=== PATIENT | male | born 1960 | race Two or more races ===

== ENCOUNTER 2016-10-24 07:03 | Day surgery (SDC) | payer OTHER ==
[2016-10-23 12:09] LABS: BLOOD UREA NITROGEN 12 mg/dL (7-18)
[~2016-10-24] VITALS: Ht 167.6 cm; Wt 88.0 kg
[~2016-10-24 07:03] MED LIST: ATOR10TA PO
[2016-10-24] MEDS ORDERED: LACTATED RINGERS 1,000 ML IV SCH (07:44)
[2016-10-24 07:46] VITALS: BP 130/85
[2016-10-24] MEDS ORDERED: MIDAZOLAM 1 MG/ML, 2ML ONE (08:13)
[2016-10-24] MEDS ORDERED: FENTANYL PF 250 MCG/5ML ONE (08:13)
[2016-10-24] MEDS ORDERED: BUPIVACAINE/PF-EPI 0.5% 1:200K ONE (08:29)
[2016-10-24] MEDS ORDERED: ACETAMINOPHEN 325 MG TABLET PO PRN (08:30)
[2016-10-24] MEDS ORDERED: OXYcodone 5 MG/5 ML ORAL.SOL UDC PO PRN (08:30)
[2016-10-24] MEDS ORDERED: PROMETHAZINE 25 MG/ML, 1ML IV PRN (08:30)
[2016-10-24] MEDS ORDERED: ONDANSETRON 2MG/ML, 2ML IVPush PRN (08:30)
[2016-10-24] MEDS ORDERED: HYDROmorphone 1 MG/ML, 1ML IV PRN (08:30)
[2016-10-24] MEDS ORDERED: LABETALOL 5MG/ML, 20ML IV PRN (08:30)
[2016-10-24] MEDS ORDERED: FENTANYL PF 100 MCG/2ML IV PRN (08:30)
[2016-10-24] MEDS ORDERED: MEPERIDINE/PF 25MG/0.5ML IVPush PRN (08:30)
[2016-10-24] MEDS ORDERED: KETOROLAC 30 MG/1 ML ONE (09:27)
[2016-10-24] MEDS ORDERED: ROCURONIUM 10 MG/ML ONE (09:27)
[2016-10-24] MEDS ORDERED: PROPOFOL 10 MG/ML, 20ML ONE (09:27)
[2016-10-24] MEDS ORDERED: DEXAMETHASONE 4 MG/ML, 1ML ONE (09:27)
[2016-10-24] MEDS ORDERED: ONDANSETRON 2MG/ML, 2ML ONE (09:27)
[2016-10-24] MEDS ORDERED: CEFAZOLIN 1,000 MG ONE (09:27)
[2016-10-24] MEDS ORDERED: ACETAMINOPHEN 650 MG/20.3 ML UDC ONE (10:49)
[2016-10-24] MEDS ORDERED: OXYcodone 5 MG/5 ML ORAL.SOL UDC ONE (10:49)
== END 2016-10-24 12:45 | disposition home or self-care (01) ==
LOC: OUT 07:03
PROVIDERS: ATTEND Surgery
DX: K42.0 Umbilical hernia with obstruction, without gangrene (principal)
CPT/HCPCS: 36415; 49587; 80048; 85025; 88302; C1781; J0690; J1100; J1885; J2250; J2405; J2704; J3010; J7120